=== PATIENT | female | born 1945 | race Caucasian/White ===

== ENCOUNTER 2017-01-10 18:05 | Day surgery (SDC) | payer OTHER ==
[2017-01-10] MEDS ORDERED: ASPIRIN PO STA (18:07)
[2017-01-10 18:22] LABS: MANUAL DIFF NEEDED? NO
--- NOTE | 2017-01-10 18:25 | EKG Report ---
Test Performed on : 01/10/2017 6:07:10 PM Test Reason : CHEST PAIN Blood Pressure : / mmHG Vent. Rate : 064 BPM Atrial Rate : 064 BPM P-R Int : 168 ms QRS Dur : 126 ms QT Int : 476 ms P-R-T Axes : 047 038 009 degrees QTc Int : 491 ms Atrial-paced rhythm Right bundle branch block Abnormal ECG When compared with ECG of 27-OCT-2016 05:56, Electronic atrial pacemaker has replaced Sinus rhythm. Unconfirmed Result
[2017-01-10 18:27] LABS: BASO% 0.2 % (0.0-0.8); EOS# 0.15 X1000 (0.0-0.7); EOS% 1.8 % (0.0-10.0); HEMATOCRIT 36.5 % (37.0-47.0); HEMOGLOBIN 12.3 g/dL (12.0-16.0); IMM GRAN# 0.01 X1000 (0.0-0.04); IMM GRAN% 0.1 % (0.0-0.5); LYMPH# 1.29 X1000 (1.2-3.4); LYMPH% 15.6 % (20.5-51.1); MCH 32.2 PG (27-31); MCHC 33.7 g/dL (33-37); MCV 95.5 FL (81-99); MONO# 0.69 X1000 (0.11-0.59); MONO% 8.4 % (1.7-9.3); MPV 9.5 FL (7.4-10.4); NEUT% 73.9 % (42.2-75.2); PLT 160 X1000 (130-400); RBC 3.82 XMIL (4.2-5.4)
[2017-01-10 18:47] LABS: AGAP 10; ALBUMIN 4.5 g/dL (3.5-5.0); ALKALINE PHOSPHATASE 100 U/L (32-104); BUN 19 mg/dL (8-22); CALCIUM 10.2 mg/dL (8.8-10.2); CHLORIDE 102 mmol/L (98-107); COSMO 279; GOT 55 U/L (10-30); GPT 57 U/L (10-36); MAGNESIUM 1.6 mg/dL (1.5-2.7); POTASSIUM 4.1 mmol/L (3.5-5.1); SODIUM 138 mmol/L (136-145); TCO2 26 mmol/L (25-35); TOTAL PROTEIN 6.8 g/dL (6.3-8.3)
[2017-01-10 18:49] LABS: CK PROFILE 211 U/L (24-173)
[2017-01-10 19:03] LABS: INR 1.18 (0.86-1.15); PROTIME 15.3 Seconds (12.1-15.5); PTT PL 28.5 Seconds (22.6-43.9)
[2017-01-10 19:13] LABS: CK INDEX 2.7 (0.0-2.5); CK-MB 5.67 ng/mL (0.0-5.0)
--- NOTE | 2017-01-10 19:17 | PROVIDER DOCUMENTATION ---
HPI-Chest Pain - General Chief Complaint: Chest Pain Stated Complaint: CHEST PAIN Time Seen by Provider: 01/10/17 18:29 Source: patient Allergies/Adverse Reactions: Patient Allergies Allergy/AdvReac Type Severity Reaction Status Date / Time cephalexin monohydrate * Allergy ANAPHYLAXIS Verified 01/10/17 19:39 [From Keflex] Home Medications: Home Medication List Medication Instructions Recorded Confirmed Last Taken Type Allopurinol 100 mg PO DAILY 05/06/15 01/10/17 01/10/17 07:30 History Cartilage/Collagen/Bor/Hyalur 1 each PO TID 10/26/16 01/10/17 01/10/17 History [Joint Health Tablet] Levothyroxine [Synthroid] 25 microgm PO DAILY 10/26/16 10/26/16 01/10/17 History Apixaban [Eliquis] 5 mg PO BID #60 tablet 10/27/16 01/10/17 01/10/17 07:30 Rx Calcium Carbonate [Calcium] 500 mg PO BID 01/10/17 01/10/17 01/10/17 07:30 History Sotalol HCl [Sotalol] 120 mg PO BID 01/10/17 01/10/17 01/10/17 07:30 History - History of Present Illness-CP Nature of Presenting Problem: around noon she bent over to get something off of a low shelf and top of mouth, throat, and chest sharp pain. PT states that she is short of breath. PT states prior to this she played 30 minutes of tennis after being off 8 weeks after having a pacemaker placed. PT states that pain is worse with deep breath. PT states that now she has developed a headache. Location: reports: substernal Chest Pain Radiation: reports: other (throat, roof of mouth) Quality of Pain: reports: sharp Severity in ED: moderate Onset/Duration: this afternoon Timing: still present Modifying Factors: worse with: breathing Associated Symptoms: reports: shortness of breath Aspirin Treatment Today: 325 mg x 1 Similar Symptoms Previously?: No Recently Seen Here or By Another Healthcare Provider: No Review of Systems - Adult - REVIEW OF SYSTEMS - ADULT Constitutional: denies: chills, fever Eyes: reports: no symptoms reported Ears, Nose, Mouth & Throat: reports: no symptoms reported Cardiovascular: reports: chest pain. denies: palpitations Respiratory: reports: shortness of breath. denies: cough Gastrointestinal: denies: nausea, vomiting Genitourinary: reports: no symptoms reported Musculoskeletal: reports: no symptoms reported Integumentary: reports: no symptoms reported Neurological: reports: headache/migraines. denies: dizziness/vertigo Psychiatric: reports: no symptoms reported Endocrine: reports: no symptoms reported Hematologic/Lymphatic: reports: no symptoms reported Allergic/Immunologic: reports: no symptoms reported All Other Systems: Reviewed and Negative Past History - Adult - PAST MEDICAL HISTORY-ADULT Review of Records: reports: Nursing Assessment Review, Medications Reviewed Major Childhood Illnesses: reports: denies history Cardiovascular: reports: HTN, hyperlipidemia Respiratory: reports: denies history Gastrointestinal: reports: denies history Obstetrical/Gynecological: reports: denies history Genitourinary: reports: denies history Musculoskeletal: reports: denies history Neurological: reports: denies history Endocrine/Immune: reports: cancer (breast) Other Conditions: reports: denies history - PRIOR SURGERIES/PROCEDURES Surgical/Procedure History: reports: BTL, orthopedic (extremity), breast, other - IMMUNIZATION STATUS Childhood Immunizations: See Nurse Assessment Flu Vaccine: See Nurse Assessment - FAMILY HISTORY Family History: reviewed, not pertinent - SOCIAL HISTORY Smoking: non-smoker Substance Use: none/never Alcohol Use Frequency: occasionally (social) Physical Exam-General - PHYSICAL EXAM-ADULT Initial Vital Signs Reviewed: Yes - CONSTITUTIONAL General Appearance: alert, mild distress - RESPIRATORY Respiratory: lungs clear, normal breath sounds, other (Pain reproducable with palpitation) - CARDIOVASCULAR Cardiovascular: normal peripheral pulses, regular rate, rhythm - GASTROINTESTINAL (ABDOMEN) Abdominal Exam: non tender, soft - SKIN Integumentary: normal color, normal turgor, warm/dry - PSYCHIATRIC Psych/Mental Status: normal mood/affect, normal thought content, normal thought process, oriented x 3 Progress - PLAN OF CARE/RESULTS Progress/Plan/Lab Results: plan of care: imaging, labs, medications, EKG Orders Category Date Time Status Cardiac Monitoring DIRECTED Care 01/10/17 18:07 Active Oxygen Therapy- ED Nursing DIRECTED Care 01/10/17 18:07 Active Saline Loc NOW Care 01/10/17 18:07 Active CHEST-2 VIEWS [RAD] Stat Exams 01/10/17 18:07 Taken CBC WITH ELECTRONIC DIFF [HEME] Stat Lab 01/10/17 18:17 Completed CK PROFILE [SP CHEM] Stat Lab 01/10/17 18:17 Completed COMPREHENSIVE METABOLIC PANEL [CHEM] Stat Lab 01/10/17 18:[address] Stat Lab 01/10/17 19:35 Completed MAGNESIUM [CHEM] Stat Lab 01/10/17 18:17 Completed PRO B-NATRIURETIC PEPTIDE Stat Lab 01/10/17 18:17 Completed [address]IME WITH INR PL [COAG] Stat Lab 01/10/17 18:[address] [COAG] Stat Lab 01/10/17 18:17 Completed TROPONIN T Stat Lab 01/10/17 18:17 Completed Aspirin Med 01/10/17 18:07 Discontinued 325 mg PO STAT STA Morphine Med 01/10/17 19:30 Discontinued 2 mg .ROUTE .STK-MED ONE Morphine Med 01/10/17 19:19 Discontinued 4 mg IV NOW ONE Ondansetron [Zofran] Med 01/10/17 19:19 Discontinued 4 mg IV NOW ONE EKG [EKG] Stat Ther 01/10/17 18:07 Draft Laboratory Tests 01/10/17 01/10/17 01/10/17 18:17 18:17 18:17 WBC RBC Hgb Hct MCV MCH MCHC RDW Std Deviation Plt Count MPV Immature Gran % (Auto) Neut % (Auto) Lymph % (Auto) [place] % (Auto) Eos % (Auto) Baso % (Auto) Immature Gran # (Auto) Neut # (Auto) Lymph # (Auto) [place] # (Auto) Eos # (Auto) Baso # (Auto) PT INR APTT (Factor Assay) Sodium 138 Potassium 4.1 Chloride 102 Carbon Dioxide 26 Anion Gap 10 BUN 19 Creatinine 0.8 Estimated GFR/1.73 m2 > 60 BUN/Creatinine Ratio 24 Glucose 125 H Calculated Osmolality 279 Calcium 10.2 Magnesium 1.6 Total Bilirubin 0.70 AST 55 H ALT 57 H Alkaline Phosphatase 100 Creatine Kinase 211 H Creatine Kinase Index 2.7 H CK-MB (CK-2) 5.67 H Troponin T < 0.010 Pde-[id number]-Hdiwthbjpbz Pept 863 H Total Protein 6.8 Albumin 4.5 Globulin 2.0 Albumin/Globulin Ratio 2.0 Group A Strep Rapid 01/10/17 01/10/17 01/10/17 18:17 18:17 19:35 WBC 8.26 RBC 3.82 L Hgb 12.3 Hct 36.5 L MCV 95.5 MCH 32.2 H MCHC 33.7 RDW Std Deviation 12.9 Plt Count 160 MPV 9.5 Immature Gran % (Auto) 0.1 Neut % (Auto) 73.9 Lymph % (Auto) 15.6 L [place] % (Auto) 8.4 Eos % (Auto) 1.8 Baso % (Auto) 0.2 Immature Gran # (Auto) 0.01 Neut # (Auto) 6.10 Lymph # (Auto) 1.29 [place] # (Auto) 0.69 H Eos # (Auto) 0.15 Baso # (Auto) 0.02 PT 15.3 INR 1.18 H APTT (Factor Assay) 28.5 Sodium Potassium Chloride Carbon Dioxide Anion Gap BUN Creatinine Estimated GFR/1.73 m2 BUN/Creatinine Ratio Glucose Calculated Osmolality Calcium Magnesium Total Bilirubin AST ALT Alkaline Phosphatase Creatine Kinase Creatine Kinase Index CK-MB (CK-2) Troponin T [id number] Pept Total Protein Albumin Globulin Albumin/Globulin Ratio Group A Strep Rapid NEGATIVE Vital Signs - 24 hr 01/10/17 01/10/17 01/10/17 18:10 19:25 19:29 Temperature 97.3 F L 97.5 F L Pulse Rate 63 60 Respiratory 22 25 H Rate Blood Pressure 142/80 138/77 O2 Sat by Pulse 95 99 Oximetry 01/10/17 20:03 Temperature Pulse Rate 67 Respiratory 22 Rate Blood Pressure 130/75 O2 Sat by Pulse 98 Oximetry Pt/family given results. [facility] Pt/Family in agreement with plan of care. - EKG 1 Time of EKG reading by physician:: 18:07 EKG Read and Signed by:: Zackery Starr EKG Interpretation (*Must complete 3 of following elements*): Abnormal Rate: 64 Rhythm: atrial paced rhythm QRS: RBB 2 Time of EKG reading by physician:: 20:19 EKG Read and Signed by:: Zackery Starr EKG Interpretation (*Must complete 3 of following elements*): Abnormal Rate: 66 Rhythm: NSR Lacey: normal Comments: possible LAE, nonspecific intraventricular block, can not rule out septal - XRAY 1 XRAY Study: Chest Impression: Normal XRAY Interpretation: NAD: Dr. Starr- ER MD - CONSULTS/PCP/HOSPITALIST Notification #1 *Consult/PCP/Hospitalist*: Dr. Leon Time Discussed: 20:03 Consult Disposition: Admit Departure - Departure Attestation - Scribe Verification/Attestation Scribe:: Gianna Saravia Acting as Scribe for:: Zackery Starr Scribe documention review:: This chart was documented by a scribe and accurately reflects the service the provider performed and the decisions made by the provider. Physician Attestation - Physician Attestation I, the provider, attest to the following statement:: Zackery Starr Physician documentation Attestation:: This documentation recorded by the scribe accurately reflects the service I personally performed and the decisions made by me.
[2017-01-10] MEDS ORDERED: ZOFRAN IV ONE (19:19)
[2017-01-10] MEDS ORDERED: MORPHINE IV ONE (19:19)
[2017-01-10] MEDS ORDERED: MORPHINE ONE (19:30)
[2017-01-10] MEDS ORDERED: ZOFRAN IV PRN (20:16)
--- NOTE | 2017-01-10 21:05 | EKG Report ---
Test Performed on : 01/10/2017 8:19:03 PM Test Reason : second set chest pain Blood Pressure : / mmHG Vent. Rate : 066 BPM Atrial Rate : 066 BPM P-R Int : 150 ms QRS Dur : 128 ms QT Int : 460 ms P-R-T Axes : 046 014 021 degrees QTc Int : 482 ms Normal sinus rhythm. Possible Left atrial enlargement Nonspecific intraventricular block Cannot rule out Septal infarct , age undetermined Abnormal ECG When compared with ECG of 10-JAN-2017 18:07, (Unconfirmed) Sinus rhythm. has replaced Electronic atrial pacemaker Nonspecific intraventricular block has replaced Right bundle branch block Minimal criteria for Septal infarct are now present Unconfirmed Result
[2017-01-10] MEDS: CALTRATE 600 + D PO SCH (22:50)
[2017-01-10] MEDS: BETAPACE PO SCH (22:50)
[2017-01-10] MEDS: ELIQUIS PO SCH (22:50)
[2017-01-10] MEDS: MORPHINE IV PRN (23:02)
[2017-01-11] MEDS: MORPHINE IV PRN (04:01)
[2017-01-11] MEDS ORDERED: MORPHINE IV PRN (07:06)
--- NOTE | 2017-01-11 07:30 | Diag Imaging Result Document ---
PROCEDURE NAME: CHEST-2 VIEWS - 01/10/2017 FRONTAL AND LATERAL CHEST, TWO VIEWS: COMPARISON: 10/26/2016. FINDINGS: The lungs are well expanded. A left-sided pacemaker has been placed since the prior exam. The heart is mildly enlarged. No pleural effusions. Minimal increased markings in the right base representing a small infiltrate or simply atelectasis. No free air beneath the diaphragm. IMPRESSION: 1. Mild cardiomegaly. 2. Atelectasis versus a tiny infiltrate in the right base.
[2017-01-11] MEDS ORDERED: TORADOL IV PRN (07:41)
[2017-01-11] MEDS: BETAPACE PO SCH (08:18)
[2017-01-11] MEDS: PATIENT'S OWN MED PO SCH ×3 (08:19→16:48)
[2017-01-11] MEDS: CALTRATE 600 + D PO SCH (08:19)
[2017-01-11] MEDS: ELIQUIS PO SCH (08:19)
[2017-01-11] MEDS ORDERED: ZYLOPRIM PO SCH (09:00)
--- NOTE | 2017-01-11 10:50 | HISTORY AND PHYSICAL ---
PRIMARY CARE PHYSICIAN: Unknown. CHIEF COMPLAINT: Throat pain. Chest pain. HISTORY OF PRESENT ILLNESS: This is a 71-year-old female with a prior history of hypertension, hypothyroid, paroxysmal atrial fibrillation, and sick sinus syndrome with recent placement of a pacemaker. She presented to the emergency room complaining of chest pain and throat pain, which she describes as a burning sharp pain. She states that she played tennis for about 30 minutes yesterday after 8 weeks of inactivity due to pacemaker placement. She went to a store and bent down to get something off a low shelf, but she said she had stabbing tearing pain that shot from the roof of her mouth to her throat and into her upper chest. It has been present since. She rates it as a 10/10 with any movement, deep breath or coughing. She rates as a 1-2/10 with lying still. She denies any chest pressure, palpitations, dizziness, syncope. She denies shortness of breath, but states that it hurts to breathe, so she is not breathing deep. Troponins have been negative. She did have a CPK of 173 with a CK index of 2.7 and CK-MB of 5.67. It was expected after playing tennis. In the emergency room, she was given morphine which she stated helped the pain significantly, as well as Zofran and aspirin, and she was admitted for further evaluation and treatment. PAST MEDICAL HISTORY: Hypertension, paroxysmal atrial fibrillation, questionable sick sinus syndrome status post pacemaker placement eight weeks, hypothyroid, and history of gout. She had breast cancer 10 years ago. PAST SURGICAL HISTORY: Right breast tumor removed, bilateral knee surgery, endometrial ablation, pacemaker placement. SOCIAL HISTORY: She does not smoke, she drinks alcohol socially. This is on a weekly or biweekly basis. She denies any illicit drug use. ALLERGIES: Keflex which causes anaphylaxis. HOME MEDICATIONS: Calcium 500 mg b.i.d., sotalol 120 b.i.d., allopurinol 100 daily, Eliquis 5 mg b.i.d. REVIEW OF SYSTEMS: A 14 point review of systems is discussed with the patient with pertinent positives being stated in the HPI. She denied chest pressure, palpitations, dizziness, syncope, cough, PND, orthopnea, fever or chills, any nausea, vomiting, diarrhea, constipation, black or bloody vomitus, black or bloody stools, hematuria, dysuria, frequency, urgency. PHYSICAL EXAMINATION: GENERAL: This is a 71-year-old female, who is lying in the bed in no distress. VITAL SIGNS: Blood pressure is 118/53 with a heart rate of 65, respirations are 18, temperature is 98.9 degrees oral with oxygen saturations of 96% to 99% on 2 L nasal cannula. HEENT: Head is normocephalic, atraumatic. Pupils equal, round, react to light. EOMS are intact. Sclerae anicteric. Mucous membranes are moist. NECK: Supple with trachea midline. CARDIOVASCULAR: Regular rate and rhythm. S1, S2 appreciated. PULMONARY: Breath sounds are clear with no increased work of breathing noted. Chest is tender with palpation and movement. GASTROINTESTINAL: Soft, nontender, nondistended with bowel sounds in all 4 quadrants. BACK: No CVAT. No spine tenderness. MUSCULOSKELETAL: Good range of motion to joints, although arms were limited due to chest pain with movement. EXTREMITIES: No clubbing, cyanosis, or edema. Pulses are palpable x4. Calves are nontender. DIAGNOSTICS: WBC is 8.2 with hemoglobin 12.3, hematocrit 36.5, and platelets of 160. INR is 1.18. Sodium is 138, potassium 4.1, BUN 19, creatinine 0.8, with a glucose of 125. AST is 55, ALT 57 with troponins negative on multiple occasions. CK-MB of 5.67. TSH is 2.56 with negative strep. Chest x-ray revealed atelectasis versus a tiny infiltrate in the right base. ASSESSMENT AND PLAN: 1. Chest pain. 2. Throat and neck pain. 3. Hypertension. 4. Hypothyroid. 5. History of paroxysmal atrial fibrillation. 6. Sick sinus syndrome with syncope, history of. 7. Status post pacemaker. PLAN: She will be admitted to the hospital, placed on telemetry. We will keep her n.p.o. until she is seen by cardiology, which we will consult. Her chest pain started with movement; it is aggravated with movement. This pain actually starts in the roof of her mouth, and she feels like it goes down her throat down into her neck. She actually states her chest pain is right above her clavicles. Then, with movement she does have pain to her mid chest. We will identify and continue her home medications. We will go ahead and check a TSH. Further treatment pending hospital course. Dictated by LAURA Schwab for Alfredo Garcia MD
--- NOTE | 2017-01-11 12:02 | Diag Imaging Result Document ---
PROCEDURE NAME: ANGIOGRAM/THORAX - 01/11/2017 CT OF THE CHEST WITH INTRAVENOUS CONTRAST: FINDINGS: There is no evidence of pneumomediastinum. The ascending aorta is at the upper limits of normal in size approaching 4 cm in diameter. There is no evidence of dissection. There is no evidence of significant pericardial fluid. There are some nonspecific right paratracheal nodes and there are nodes 6 up to 13 mm in size in the AP window. There is a precarinal node measuring 2 cm in greatest dimension. There are some calcified right hilar nodes. There is dense opacification and volume loss in the right lower lobe and to a lesser extent in the dependent portions of the left lower lobe. There are bilateral pleural effusions more so on the right than the left. The regional skeleton appears to be intact. There are no previous studies. IMPRESSION: Bibasilar pneumonia. No evidence of pneumomediastinum. Bilateral pleural effusions.
--- NOTE | 2017-01-11 12:07 | EKG Report ---
Test Performed on : 01/11/2017 11:55:26 AM Test Reason : chest pain Blood Pressure : / mmHG Vent. Rate : 061 BPM Atrial Rate : 061 BPM P-R Int : 158 ms QRS Dur : 128 ms QT Int : 496 ms P-R-T Axes : 040 012 029 degrees QTc Int : 499 ms Atrial-paced rhythm Nonspecific intraventricular block Abnormal ECG When compared with ECG of 10-JAN-2017 20:19, (Unconfirmed) Electronic atrial pacemaker has replaced Sinus rhythm. Minimal criteria for Septal infarct are no longer present Unconfirmed Result
--- NOTE | 2017-01-11 14:19 | CONSULTATION ---
DATE OF CONSULTATION: 01/11/2017 CARDIOLOGY CONSULTATION: IMPRESSION: 1. Pleuritic and positional chest pain of abrupt onset yesterday evening. Given clinical presentation and recent pacemaker implant consider possible acute pericarditis and possible mechanical complication related to recent permanent pacemaker implant. 2. Paroxysmal atrial fibrillation. 3. Sinus node dysfunction/tachy-cindi syndrome. Patient is status post permanent pacemaker implant with dual-chamber device approximately 6 weeks ago at [facility] in [place], [place]. 4. Hypertension. 5. Hypothyroidism. RECOMMENDATIONS: 1. Chest CT scan as soon as possible. 2. A 2D echocardiogram/Doppler study as soon as possible. HISTORY: This 71-year-old, white female with past history of hypertension, paroxysmal fibrillation, sinus node dysfunction and permanent pacemaker implant approximately 6 weeks ago was admitted to emergency room last night with atypical chest pain. She has had episodes of palpitations and some associated chest discomfort for over a year. Previous stress testing in 2014 was negative. She was recently in the [facility] at a beach house her family has in the area. 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 She had noted some tendency for prominent fatigue and some exertional shortness of breath with mild palpitations. She went for a walk and had a syncopal episode. She was already on an event recorder at the time because of her suspected paroxysmal atrial fibrillation. She reportedly had a 10 second pause. She also had paroxysmal atrial fibrillation evident. She was hospitalized at [facility] and had a permanent dual-chamber pacemaker implant placed. She was also started on sotalol. She was also started on anticoagulation with Eliquis. She had permanent pacemaker implant in the left subclavian area. She is ambidextrous. She has had no problems since then until recently. She played tennis briefly for about 15 minute a couple days ago with no problem. Yesterday afternoon she played doubles tennis for about 30 minutes with no problem. 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 Discomfort was worse with deep breath. She went home and noted that the discomfort was even tended to be worse when she was lying down. She came to the emergency room for evaluation. The ECG demonstrated atrial paced rhythm but is otherwise benign. Troponin was normal. She was given analgesics as well as Toradol. Her chest discomfort improved considerably. She now only has discomfort if she takes a very deep breath. She has had no recent exertional chest discomfort. PAST MEDICAL HISTORY: 1. Hypertension. 2. Paroxysmal atrial fibrillation/sinus node dysfunction. Patient is status post recent permanent pacemaker implant with dual-chamber device, initiation of sotalol, and initiation of anticoagulation with Eliquis. 3. Hypothyroidism. 4. History of breast cancer. 5. Gout. PAST SURGICAL HISTORY: Includes breast lumpectomy, unspecified knee surgery, endometrial ablation, and permanent pacemaker implant in November 2016 at [facility] in [place], [place]. MEDICATIONS PRIOR TO ADMISSION: As listed. SOCIAL HISTORY: She is . She does not smoke. 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 FAMILY HISTORY: Negative for premature coronary artery disease. REVIEW OF SYSTEMS: Pulmonary: Negative. Gastrointestinal: Negative. Constitutional: Negative. Remainder of review of systems negative/noncontributory beyond history of present illness with 14 total systems reviewed. PHYSICAL EXAMINATION: General Appearance: This patient is a pleasant, older white female, in no distress. Vital Signs: Include a blood pressure 118/53, heart rate 65 and regular, temperature 98.9 degrees. HEENT Exam: Extraocular movements appear intact. Mucous membranes are moist. Neck: Supple without jugular venous distention. There are no carotid bruits. Chest: Clear to auscultation posteriorly. Cardiac Exam: Reveals a regular rate and rhythm without appreciable murmur or gallop. There is splitting of the 2nd heart sound. There is also noted an inspiratory coarse crackle noted along the left sternal border. Abdomen: Soft, nontender. Bowel sounds are normal. Extremities: Without edema. Neurologic Exam: Reveals her to be alert, fully oriented. Speech is fluent. Moves all 4 extremities equally well. Skin: Warm, dry. Psych Exam: Reveals her mood to be appropriate. DIAGNOSTIC DATA: ECG obtained yesterday evening demonstrates atrial paced rhythm and right bundle branch block. Repeat ECG this morning demonstrates sinus rhythm at 66 beats per minute and right bundle branch block. Serial troponins are normal.
[2017-01-11 15:09] VITALS: BP 121/55
[2017-01-11] MEDS ORDERED: DOXYCYCLINE PO ONE (15:58)
[2017-01-11] MEDS ORDERED: ZITHROMAX PO ONE (15:58)
[2017-01-11] MEDS ORDERED: TYLENOL WITH CODEINE #3 PO ONE (15:58)
--- NOTE | 2017-01-11 16:06 | ECHO REPORT ---
ORDER DATE: 01/11/2017 INDICATION: Chest pain, pacemaker, and syncope. M-MODE MEASUREMENTS: Right ventricle: 2.2 cm. Left ventricle end diastole: 4.3 cm. Left ventricle end systole: 2.8 cm. Posterior wall: 0.8 cm. Interventricular septum: 0.8 cm. Left atrium: 4.8 cm. Aortic root: 3.3 cm. SUMMARY OF 2-DIMENSIONAL IMAGIN. The left ventricular systolic function is normal. The ejection fraction is estimated in the range of 55%-60%. No wall motion abnormality is noted. The left ventricular chamber is normal. 2. The left atrium appears to be whyylbtbrr-[id number]-xwvihfvgszbls enlarged. 3. The right ventricle appears to be normal. 4. The right atrium appears to be grossly normal. 5. The inferior vena cava is mildly dilated. It shows decreased respiratory variation. 6. The tricuspid valve shows a moderate degree of regurgitation. 7. A pacemaker lead is noted within the right ventricle. 8. The mitral valve shows some thickening of the leaflets and some calcification of the annulus. Color flow mapping shows mild regurgitation. 9. The pulse wave Doppler of mitral inflow is normal. 10.Tissue Doppler of septal and lateral mitral annulus averages 8 cm. 11.Pulse wave Doppler of pulmonary venous flow is normal. 12.There is no diastolic dysfunction. 13.The aortic valve shows thickening/calcification of the cusps. Color flow mapping shows no regurgitation. There is no aortic stenosis. 14.There is no pericardial effusion and no sign of thrombus. SUMMARY: In summary, this study shows: 1. Normal left ventricular systolic function. 2. Moderate degree of mitral and tricuspid regurgitation. 3. No diastolic dysfunction. 4. The pulmonary systolic pressure is estimated at 43 mmHg to 48 mmHg. No diastolic dysfunction was noted. Clinical correlation is recommended.
== END 2017-01-11 18:01 | disposition home or self-care (01) ==
LOC: P.ED 18:05 → P.MEDSURG 20:00 → UNDOADMIN 20:00 → INTOOBSV 20:29 → UNDOADMOB 20:29 → OPS 20:29 → P.MEDSURG 20:29 → UNDODISOB 01-11 18:01 → OPS 01-11 18:01
PROVIDERS: ATTEND Family Medicine
DX: R07.89 Other chest pain (principal); I48.0 Paroxysmal atrial fibrillation; R94.31 Abnormal electrocardiogram [ECG] [EKG]; I45.10 Unspecified right bundle-branch block; I49.5 Sick sinus syndrome; Z95.0 Presence of cardiac pacemaker; I10 Essential (primary) hypertension; E03.9 Hypothyroidism, unspecified; M10.9 Gout, unspecified; R07.0 Pain in throat; R51 Headache; M54.2 Cervicalgia; R06.02 Shortness of breath; Z79.899 Other long term (current) drug therapy; Z79.01 Long term (current) use of anticoagulants; Z82.49 Family history of ischemic heart disease and other diseases of the circulatory system; Z85.3 Personal history of malignant neoplasm of breast
CPT/HCPCS: 71020; 71275; 80053; 82550; 82553; 83735; 83880; 84443; 84484; 85025; 85610; 85651; 85730; 86140; 87081; 87430; 93005; 93306; 94761; 96374; 96375; J1885; J2270; J2405; Q9967

== ENCOUNTER 2017-01-14 11:38 | Emergency (ER) | payer OTHER ==
--- NOTE | 2017-01-14 12:25 | ED EKG INTERP ---
EKG Interpretation - EKG Time of EKG reading by physician:: 11:54 EKG Read and Signed by:: Michel Holt EKG Interpretation (*Must complete 3 of following elements*): Abnormal Rate: 124 Rhythm: a-fib with rvr QRS: RBB ST Wave: normal Attestation - Scribe Verification/Attestation Scribe:: Pasquale Lezama Acting as Scribe for:: Michel Holt Scribe documention review:: This chart was documented by a scribe and accurately reflects the service the provider performed and the decisions made by the provider. Physician Attestation - Physician Attestation I, the provider, attest to the following statement:: Michel Holt Physician documentation Attestation:: This documentation recorded by the scribe accurately reflects the service I personally performed and the decisions made by me.
[2017-01-14] MEDS ORDERED: CARDIZEM IV ONE (12:42)
--- NOTE | 2017-01-14 12:44 | PROVIDER DOCUMENTATION ---
HPI-Cardiac General - General Source: patient - History of Present Illness-Cardiac Quality of Pain: reports: none Severity in ED: mild, moderate Onset/Duration: gradual, last night Timing: still present, constant Context/Activities at Onset: reports: other (recent pneumonia dx) Modifying Factors: improves with: nothing Palpitation Quality: fast/pounding heart beat History of arrythmia: reports: A-Fib Recent use of:: reports: no stimulants Nitro Today/Relief: reports: no nitro taken today Aspirin Treatment Today: reports: no aspirin today Prior Chest Pain/Cardiac Workup: reports: other Associated Symptoms: denies: back pain, diaphoresis, fever/chills, nausea, vomiting Similar Symptoms Previously?: Yes Recently Seen Here or By Another Healthcare Provider: Yes - General Chief Complaint: Palpitations Stated Complaint: HEART RACING Time Seen by Provider: 01/14/17 12:32 Allergies/Adverse Reactions: Patient Allergies Allergy/AdvReac Type Severity Reaction Status Date / Time cephalexin monohydrate * Allergy ANAPHYLAXIS Verified 01/14/17 12:45 [From [facility]] Home Medications: Home Medication List Medication Instructions Recorded Confirmed Last Taken Type Cartilage/Collagen/Bor/Hyalur 1 each PO TID 10/26/16 01/14/17 01/10/17 History [Joint Health Tablet] Apixaban [Eliquis] 5 mg PO BID #60 tablet 10/27/16 01/14/17 01/10/17 20:00 Rx Calcium Carbonate [Calcium] 500 mg PO BID 01/10/17 01/14/17 01/10/17 07:30 History Sotalol HCl [Sotalol] 120 mg PO BID 01/10/17 01/14/17 01/13/17 23:00 History Azithromycin [Zithromax Z-Glen] 250 mg PO DIRECTED #1 pkg 01/11/17 01/14/17 10:00 Rx Colchicine [Colcrys] 0.6 mg PO BID #10 tablet 01/11/17 01/14/17 Unknown Rx Doxycycline [Vibramycin] 100 mg PO BID #10 tablet 01/11/17 01/14/17 01/13/17 20: 00 Rx Ibuprofen 600 mg PO Q8H PRN #30 tablet 01/11/17 01/14/17 01/13/17 20:00 Rx Diltiazem C.d. [Cardizem C.d] 120 mg PO DAILY #30 capsule 01/14/17 Unknown Rx - History of Present Illness-Cardiac Nature of Presenting Problem: patient is a 71 y/o F that presents to the ER with palpitations that began last pm. patient has history of a-fib with pacemaker insertion this past Nov. patient denies chest pain. Was d/c home from [facility] 01/11/17 for chest pain and pneumonia. patient denies chest pain at this time as well as last pm. She reports stopping Eliquid saturday. (Pasquale Lezama) Review of Systems - Adult - REVIEW OF SYSTEMS - ADULT Constitutional: denies: chills, fever Eyes: reports: no symptoms reported Ears, Nose, Mouth & Throat: denies: ear pain, sinus problem, throat pain, throat swelling Cardiovascular: reports: palpitations. denies: chest pain, syncope Respiratory: denies: cough, shortness of breath, wheezing Gastrointestinal: denies: abdominal pain, diarrhea, nausea, vomiting Genitourinary: reports: no symptoms reported Musculoskeletal: denies: back pain, joint pain, neck pain Integumentary: reports: no symptoms reported Neurological: reports: no symptoms reported Psychiatric: reports: no symptoms reported Endocrine: reports: no symptoms reported Hematologic/Lymphatic: reports: no symptoms reported Allergic/Immunologic: reports: no symptoms reported All Other Systems: Reviewed and Negative Past History - Adult - PAST MEDICAL HISTORY-ADULT Review of Records: reports: Old Records Reviewed, Nursing Assessment Review, Medications Reviewed Cardiovascular: reports: A-Fib, HTN, hyperlipidemia, pacemaker Obstetrical/Gynecological: reports: other (right breast) Endocrine/Immune: reports: thyroid disorder - PRIOR SURGERIES/PROCEDURES Surgical/Procedure History: reports: pacemaker, BTL, orthopedic (extremity), breast, other - IMMUNIZATION STATUS Childhood Immunizations: See Nurse Assessment Flu Vaccine: See Nurse Assessment - FAMILY HISTORY Family History: reviewed, not pertinent - SOCIAL HISTORY Smoking: quit greater than 1 year, cigarettes Alcohol Use Frequency: rarely Living Situation: family Physical Exam-General - PHYSICAL EXAM-ADULT Initial Vital Signs Reviewed: Yes - CONSTITUTIONAL General Appearance: alert, other (ill appearing) - EYES Eyes: PERRL/EOMI, pink conjunctivae - HEAD, EARS, NOSE, MOUTH & THROAT HENMT: normocephalic/atraumatic, moist mucous membranes, normal ENT inspection - NECK Neck: full range of motion, normal inspection. negative: lymphadenopathy - RESPIRATORY Respiratory: lungs clear, normal breath sounds, no respiratory distress, no accessory muscle use - CARDIOVASCULAR Cardiovascular: no murmur, irregularly irregular - GASTROINTESTINAL (ABDOMEN) Abdominal Exam: normal bowel sounds, non tender, soft - MUSCULOSKELETAL Extremity: normal range of motion, normal inspection, no pedal edema, normal capillary refill - SKIN Integumentary: normal color, warm/dry - NEUROLOGIC Neurologic: grossly normal, no motor/sensory deficits - PSYCHIATRIC Psych/Mental Status: normal mood/affect, normal thought content, normal thought process, oriented x 3 Progress - REASSESSMENT Reassessment #1 Time Reassessed: 13:00 Status: improving Reassessment Comment: rate controlled a-fib post cardizem - CONSULTS/PCP/HOSPITALIST Notification #1 *Consult/PCP/Hospitalist*: Time Discussed: 13:05 Reason/Comments: start back on Eliquis Consult Disposition: F/U in office - PLAN OF CARE/RESULTS Progress/Plan/Lab Results: plan of care-meds, ekg Vital Signs Temp Pulse Resp BP Pulse Ox 01/14/17 13:37 88 14 128/89 95 01/14/17 13:01 79 14 116/83 96 01/14/17 12:55 79 14 117/77 96 01/14/17 11:48 98.5 F 129 H 16 149/101 98 cephalexin monohydrate * [From Keflex] Allergy (Verified 01/14/17 12:45) ANAPHYLAXIS Cartilage/Collagen/Bor/Hyalur [Joint Health Tablet] 1 each PO TID 10/26/16 Apixaban [Eliquis] 5 mg PO BID #60 tablet 10/27/16 Calcium Carbonate [Calcium] 500 mg PO BID 01/10/17 Sotalol HCl [Sotalol] 120 mg PO BID 01/10/17 Azithromycin [Zithromax Z-Glen] 250 mg PO DIRECTED #1 pkg 01/11/17 Colchicine [Colcrys] 0.6 mg PO BID #10 tablet 01/11/17 Doxycycline [Vibramycin] 100 mg PO BID #10 tablet 01/11/17 Ibuprofen 600 mg PO Q8H PRN #30 tablet 01/11/17 Diltiazem C.d. [Cardizem C.d] 120 mg PO DAILY #30 capsule 01/14/17 Laboratory 01/14/17 01/14/17 12:14 12:14 WBC 6.14 RBC 3.62 L Hgb 11.6 L Hct 35.0 L MCV 96.7 MCH 32.0 H MCHC 33.1 RDW Std Deviation 13.1 Plt Count 206 MPV 11.2 H Immature Gran % (Auto) 0.0 Neut % (Auto) 65.1 Lymph % (Auto) 18.7 L [place] % (Auto) 12.9 H Eos % (Auto) 2.8 Baso % (Auto) 0.5 Immature Gran # (Auto) 0.00 Neut # (Auto) 4.00 Lymph # (Auto) 1.15 L [place] # (Auto) 0.79 H Eos # (Auto) 0.17 Baso # (Auto) 0.03 Sodium 137 Potassium 4.0 Chloride 102 Carbon Dioxide 23 L Anion Gap 12 BUN 14 Creatinine 0.8 Estimated GFR/1.73 m2 > 60 BUN/Creatinine Ratio 18 Glucose 153 H Calculated Osmolality 277 Calcium 9.4 Total Bilirubin 0.68 AST 129 H ALT 154 H Alkaline Phosphatase 191 H Total Protein 6.9 Albumin 3.8 Globulin 3.1 Albumin/Globulin Ratio 1.2 Orders Category Date Time Status CBC WITH ELECTRONIC DIFF [HEME] Stat Lab 01/14/17 12:14 Completed CMP [COMPREHENSIVE METABOLIC PANEL] [CHEM] Stat Lab 01/14/17 12:14 Completed Diltiazem C.d. [Cardizem Cd] Med 01/14/17 13:09 Discontinued 120 mg PO NOW ONE Diltiazem [Cardizem] Med 01/14/17 12:42 Discontinued 25 mg IV NOW ONE EKG [EKG] Stat Ther 01/14/17 11:47 Ordered pt will be d/c home f/u with in one week, patient was clinically stable, family and patient understood instructions and results (Pasquale Lezama) Departure - Departure Time of Disposition Order: 14:37 Certified Medical Emergency: Emergent - Critical Care Note Total Time (mins): 40 Critical Care Statement: This patient required my direct personal management to treat or rule out processes, the absence of which, could potentiallly result in sudden, clinically significant life or limb threatening deterioration. - Departure DIAGNOSIS: Atrial fibrillation with rapid ventricular response Disposition: HOME 01 Condition: Stable Additional Instructions: start Eliquis again See in one week ED Follow Up Instructions: You have been treated by a care provider in the Emergency Department. These instructions are being provided to you so you can have an understanding of how to care for yourself upon discharge. Upon discharge from the Emergency Department, you are responsible for making arrangements for follow-up care by a physician of your choice. Take all prescribed medications as directed. Return to the Emergency Department immediately for any new or worsening symptoms. You may call the Physician Referral phone number at [phone] to obtain a list of Physicians who are taking new patients. Prescriptions: Diltiazem C.d. [Cardizem C.d] 120 mg PO DAILY #30 capsule Referrals: Nona Mills MD [Primary Care Provider] - Francisco Chery MD [STAFF PHYSICIAN] - Call for Appoint. 1-2days (see in one week) Instructions: Atrial Fibrillation, [id number] Attestation - Scribe Verification/Attestation Scribe:: Pasquale Lezama Acting as Scribe for:: Manjit Blum Scribe documention review:: This chart was documented by a scribe and accurately reflects the service the provider performed and the decisions made by the provider. Physician Attestation - Physician Attestation I, the provider, attest to the following statement:: Manjit Blum Physician documentation Attestation:: This documentation recorded by the scribe accurately reflects the service I personally performed and the decisions made by me.
[2017-01-14] MEDS ORDERED: CARDIZEM CD PO ONE (13:09)
[2017-01-14 13:41] LABS: MANUAL DIFF NEEDED? NO
[2017-01-14 13:51] LABS: BASO% 0.5 % (0.0-0.8); EOS# 0.17 X1000 (0.0-0.7); EOS% 2.8 % (0.0-10.0); HEMOGLOBIN 11.6 g/dL (12.0-16.0); LYMPH# 1.15 X1000 (1.2-3.4); LYMPH% 18.7 % (20.5-51.1); MCHC 33.1 g/dL (33-37); MCV 96.7 FL (81-99); MONO# 0.79 X1000 (0.11-0.59); MONO% 12.9 % (1.7-9.3); MPV 11.2 FL (7.4-10.4); NEUT% 65.1 % (42.2-75.2); PLT 206 X1000 (130-400); RBC 3.62 XMIL (4.2-5.4)
[2017-01-14 14:39] LABS: AGAP 11; ALBUMIN 3.9 g/dL (3.5-5.0); ALKALINE PHOSPHATASE 189 U/L (32-104); BUN 14 mg/dL (8-22); CALCIUM 9.6 mg/dL (8.8-10.2); CHLORIDE 99 mmol/L (98-107); COSMO 271; GOT 142 U/L (10-30); GPT 152 U/L (10-36); POTASSIUM 3.9 mmol/L (3.5-5.1); SODIUM 134 mmol/L (136-145); TCO2 24 mmol/L (25-35); TOTAL BILIRUBIN 0.65 mg/dL (0.20-1.00); TOTAL PROTEIN 6.7 g/dL (6.3-8.3)
--- NOTE | 2017-01-14 15:02 | EKG Report ---
Test Performed on : 01/14/2017 11:54:46 AM Test Reason : palpitations Blood Pressure : / mmHG Vent. Rate : 124 BPM Atrial Rate : 108 BPM P-R Int : 000 ms QRS Dur : 126 ms QT Int : 386 ms P-R-T Axes : 000 026 -51 degrees QTc Int : 554 ms Atrial fibrillation. with rapid ventricular response. Right bundle branch block Abnormal ECG When compared with ECG of 11-JAN-2017 11:55, (Unconfirmed) Atrial fibrillation. has replaced Electronic atrial pacemaker Vent. rate has increased BY 63 BPM Right bundle branch block has replaced Nonspecific intraventricular block Unconfirmed Result
[2017-01-14 15:16] VITALS: BP 120/99
== END 2017-01-14 15:18 | disposition home or self-care (01) ==
LOC: ED 11:38
DX: I48.91 Unspecified atrial fibrillation (principal); R00.2 Palpitations; I10 Essential (primary) hypertension; E78.5 Hyperlipidemia, unspecified; Z95.0 Presence of cardiac pacemaker; E07.9 Disorder of thyroid, unspecified; Z87.891 Personal history of nicotine dependence; R94.31 Abnormal electrocardiogram [ECG] [EKG]; Z79.899 Other long term (current) drug therapy; Z79.01 Long term (current) use of anticoagulants
CPT/HCPCS: 80053; 85025; 93005; 96374